=== PATIENT | female | born 1950 | race Caucasian/White ===

== ENCOUNTER → 2023-07-03 | Outpatient (CLI) | payer MEDICARE, SELFPAY ==
--- NOTE | 2023-07-03 13:48 | ECHOCS_ITS ---
Reason For Study: SHORTNESS OF BREATH Procedure This was a 2D Doppler, Color Flow transthoracic echocardiogram. The study was technically difficult. Contrast injection was performed. Exam performed in department. Left Ventricle Normal LV size. The estimated ejection fraction is 55 %. No regional wall motion abnormalities noted. Right Ventricle Normal RV size. Normal systolic function. Atria The left atrium is moderately enlarged. The right atrium is moderately enlarged. Mitral Valve Normal mitral valve. Tricuspid Valve Normal tricuspid valve. Aortic Valve Normal aortic valve. Pulmonic Valve Normal pulmonic valve. Great Vessels Normal aortic root. The pulmonary artery is normal size. Normal inferior vena cava. Pericardium/Pleural No pericardial effusion. Medication 22 gauge I.V. with prn adaptor inserted into right arm. Performed a rapid injection of agitated mix of 9 cc saline and 1cc air to assess for atrial septal defect. Diluted definity 2.5ml given slow IV push to enhance endocardial definition. MMode/2D Measurements & Calculations LVIDd: 5.4 cm IVSd: 1.1 cm LVOT diam: 2.1 cm LVIDs: 2.9 cm LVPWd: 1.1 cm RVDd: 4.9 cm FS: 46.2 % LVOT area: 3.6 cm2 Ao root diam: 3.5 cm LAV(MOD-bp): 102.9 ml LA A4 area: 28.2 cm2 LAV(MOD-bp) Indexed: 41.7 ml/m2 LAV(MOD-sp2): 101.8 ml LAV(MOD-sp4): 98.3 ml LA dimension(2D): 5.8 cm TAPSE: 1.3 cm RA A4 area: 28.0 cm2 Time Measurements MV dec time: 0.15 sec Doppler Measurements & Calculations MV E max gurjit: 116.6 cm/sec Lat Peak E' Gurjit: 8.0 cm/sec Med Peak E' Gurjit: 6.1 cm/sec E/E' lat: 14.6 E/E' med: 19.2 Ao V2 max: 108.8 cm/sec LV V1 max: 71.6 cm/sec SV(LVOT): 50.8 ml Ao max P.8 mmHg LV V1 max P.1 mmHg Ao V2 mean: 77.3 cm/sec LV V1 mean P.2 mmHg Ao mean P.7 mmHg LV V1 mean: 52.3 cm/sec Ao V2 VTI: 21.4 cm LV V1 VTI: 14.0 cm AV (velocity ratio): 0.66 QUIN(I,D): 2.4 cm2 QUIN(V,D): 2.4 cm2 PA V2 max: 63.4 cm/sec PA max PG (full): 0.57 mmHg ECHO/Echo Complete W/ Contrast Interpretation Summary Normal LV size. The estimated ejection fraction is 55 %. The left atrium is moderately enlarged. The right atrium is moderately enlarged. Contrast injection was performed. Ordering Physician: RODNEY STEPHENSON Referring Physician: RODNEY STEPHENSON Performed By: Maria Elena Willams RDCS
== END | disposition home or self-care (01) ==
LOC: CVS 13:44
PROVIDERS: PCP Family Medicine
DX: R06.02 Shortness of breath (principal); I48.91 Unspecified atrial fibrillation; E66.01 Morbid (severe) obesity due to excess calories; Z68.43 Body mass index [BMI] 50.0-59.9, adult
CPT/HCPCS: 93306; Q9957; A4216; C8929

== ENCOUNTER → 2023-08-06 | Outpatient (CLI) | payer MEDICARE, SELFPAY | END | disposition home or self-care (01) | PROVIDERS: PCP Family Medicine; Referring Provider Internal Medicine Critical Care Medicine; Visit Provider Internal Medicine Critical Care Medicine | DX: F17.211 Nicotine dependence, cigarettes, in remission (principal); E66.01 Morbid (severe) obesity due to excess calories; J45.909 Unspecified asthma, uncomplicated; F41.9 Anxiety disorder, unspecified | CPT/HCPCS: 94060; 94726; 94729 ==

== ENCOUNTER → 2023-08-08 | Outpatient (CLI) | payer MEDICARE, SELFPAY ==
[2023-08-08 13:45] VITALS: PULSE 75; PULSE 83; PULSE 85; PULSE 90; PULSE 92; PULSE 93; PULSE 98; O2SAT 93; O2SAT 94; O2SAT 95; O2SAT 96
--- NOTE | 2023-08-09 09:39 | PCM.PSN.6M ---
PSN 6 Minute Walk Test 6 Minute Walk Test 6 Minute Walk Test: 6 Minute Walk Test PSN:6-Minute Walk Test Start: 08/08/23 14:06 Freq: Status: Active Protocol: [id number] Document 08/08/23 13:45 AEH (Rec: 08/08/23 14:10 AE Desktop) 6 Minute Walk Test Date Performed 08/08/23 Time Performed 13:45 Height 5 ft 6 in Weight: 300 lb Weight in Pounds 300.[address]: Dr Pichardo Assistive device used: Walker Pre-test Oxygen Delivery Method Room Air Pulse Ox 95 Pulse Rate (60-100) 83 Dyspnea Costa Scale (0-10) 2 Exertion Costa Scale (6-20) 6 1st minute Pulse Ox 93 Pulse Rate (60-100) 92 2nd minute Oxygen Delivery Method Room Air Pulse Ox 96 Pulse Rate (60-100) 85 3rd minute Oxygen Delivery Method Room Air Pulse Ox 94 Pulse Rate (60-100) 98 4th minute Oxygen Delivery Method Room Air Pulse Ox 94 Pulse Rate (60-100) 75 5th minute Oxygen Delivery Method Room Air Pulse Ox 94 Pulse Rate (60-100) 93 6th minute Oxygen Delivery Method Room Air Pulse Ox 95 Pulse Rate (60-100) 92 Dyspnea Costa Scale (0-10) 4 Exertion Costa Scale (6-20) 14 Post-test Oxygen Delivery Method Room Air Pulse Ox 96 Pulse Rate (60-100) 90 Full Laps Walked 8 Partial Lap, Number of Tiles Walked 13 Total Distance Walked (ft) 485 Interpretation Interpretation: The patient ambulated 485 feet over the course of 6 minutes beginning on room air with use of a walker. Pretesting oxygen saturation was noted to be 95% on room air. With ambulation, the marilia oxygen saturation was 93%. There was no significant exertional oxygen desaturation. Recommendations Recommendations: There is no indication for use of supplemental oxygen at this time.
== END | disposition home or self-care (01) ==
LOC: PSN 13:34
PROVIDERS: PCP Family Medicine; Referring Provider Internal Medicine Critical Care Medicine; Visit Provider Internal Medicine Critical Care Medicine
DX: F17.211 Nicotine dependence, cigarettes, in remission (principal); E66.01 Morbid (severe) obesity due to excess calories; J45.909 Unspecified asthma, uncomplicated; F41.9 Anxiety disorder, unspecified
CPT/HCPCS: 94618

== ENCOUNTER → 2023-09-19 | Outpatient (CLI) | payer MEDICARE, SELFPAY ==
--- NOTE | 2023-09-19 13:30 | CT_ITS ---
STUDY: LOW DOSE CT LUNG CANCER SCREENING REASON FOR EXAM: Female, 73 years old. h/o Tobacco Dependency. Former smoker. Patient smoked between 2 and 3 packs per day for 50 years. RADIATION DOSAGE (If Supplied By Facility): CTDIvol = ( 3.18 ) mGy, DLP = ( 108.41 ) mGycm TECHNIQUE: No contrast was administered. Limited study due to the patient''s body habitus. Low dose technique was utilized (average mAS-38 and kVp 120). 1.25 mm axial source images with a slice interval of 1.25-mm were reconstructed in lung windows. 2.5 mm axial source images with a slice interval of 2.5-mm were reconstructed in lung windows. 5.0 mm axial source images with a slice interval of 5.0-mm were reconstructed in soft tissue windows. COMPARISON: None. NODULES: No suspicious nodules are seen. Emphysema: Mild degree of increased markings at the lung bases slightly worse on the left side suggestive of scarring. Endobronchial lesion: None Aorta: Mild degree of atherosclerotic plaque formation of the aortic arch. CORONARY ARTERIES: Coronary artery calcification is seen. Heart: Unremarkable Pulmonary artery: Unremarkable Mediastinal nodes: Unremarkable Other chest and abdominal findings: CT/Low Dose CT Lung Screening IMPRESSION: Lung-RADS category 2 - Continue annual screening with LDCT in 12 months. IMPORTANT NOTES FOR USE: ACR Lung-RADS Version 1.1 Assessment Categories Release Date: 2018 Category: Coded 0-4 bases on nodule(s) with highest degree of suspicion. Negative screen is defined as categories 1 and 2; a positive screen is defined as categories 3 and 4. Category 3 and 4A nodules that are unchanged on interval CT should be coded as category 2, and individuals returned to screening in 12 months. Category 4X: Category 3 or 4 nodules with additional imaging findings that increase the suspicion of lung cancer, such as spiculation, GGN that doubles in size in 1 year, enlarged lymph notes, etc. Category Modifiers: S (significant finding unrelated to lung cancer) Electronically Signed: Travon Pandey MD at 14:26 EDT ,
== END | disposition home or self-care (01) ==
PROVIDERS: PCP Family Medicine; Referring Provider Internal Medicine Critical Care Medicine; Visit Provider Internal Medicine Critical Care Medicine
DX: F17.211 Nicotine dependence, cigarettes, in remission (principal)
CPT/HCPCS: 71271